=== PATIENT | female | born 1995 | race Caucasian/White ===

== ENCOUNTER → 2018-12-02 08:25 | Day surgery (SDC) | payer OTHER ==
[~2018-12-02 08:25] MED LIST: Buffered Lidocaine 1% SYRIN* 1 ML/SYRINGE INTRADERM ONE; Bupivacaine 0.25% W/EPI* 10 ML SDV ONE; Bupivacaine 0.5% W/EPI SDV* 30 ML VIAL ONE; Dexamethasone IV* 4 MG/ML 1 ML (4 MG) IV SLOW PU ONE; Dexamethasone IV* 4 MG/ML 1 ML (4 MG) ONE; DiMENhydriNATE IV* 50 MG/ML VIAL IV PUSH PRN; Famotidine IV* 10 MG/ML 2 ML (20 mg) IV ONE; Famotidine IV* 10 MG/ML 2 ML (20 mg) ONE; Ketorolac INJ* 30 MG/ML 1 ML VIAL ONE; Lactated Ringers 1000 ML Bag* 1,000 ML IV SCH; Lidocaine 2% PF * 5 ML VIAL ONE; Midazolam* 1 MG/ML 2 ML VIAL (2 MG) ONE; Naloxone* 0.4 MG/ML 1 ML VIAL IV PRN; Ondansetron INJ* 2 MG/ML VIAL ONE; Propofol* 10 MG/ML 20 ML BTL ONE; Sugammadex * 200 MG/2 ML VIAL IV PUSH ONE; fentaNYL* 50 MCG/ML 2 ML VIAL (100 MCG VIAL) IV PRN; fentaNYL* 50 MCG/ML 2 ML VIAL (100 MCG VIAL) ONE
[2018-12-02 11:17] VITALS: BP 124/82
--- NOTE | 2018-12-02 21:00 | OP ---
DATE OF OPERATION: 12/02/18 - [facility] DATE OF : 89 SURGEON: Jeremías Avery MD ANESTHESIA: General endotracheal tube. PRE-OP DIAGNOSIS: Desires permanent sterilization. POST-OP DIAGNOSIS: Desires permanent sterilization. OPERATIVE PROCEDURE: Laparoscopic bilateral tubal ligation. COMPLICATIONS: None. FINDINGS: On laparoscopy, the anterior bladder flap appeared normal. The cul- de- sac appeared normal. Both tubes and ovaries appeared normal. Liver surface was smooth and appendix was retrocecal. DESCRIPTION OF PROCEDURE: The patient was identified, procedure identified as a laparoscopic tubal ligation and removal of IUD. The patient was taken to the operating room, prepped and draped in the usual fashion in the dorsal lithotomy position under general anesthesia. A speculum was placed in the vagina and a single-tooth tenaculum was placed at the anterior lip of the cervix and the IUD string was identified and IUD was removed without difficulty. A sponge stick was placed in the vagina and small infraumbilical incision was made and a Verses needle was inserted through this. The abdomen was insufflated to 50 mmHg. The Veress needle was removed and the trocar was inserted under direct visualization using the Visiport. The above findings were noted. A second incision was made 2 cm above the pubic symphysis in the midline and a second trocar was inserted under direct visualization. The right fallopian tube was grasped in the mid portion, followed out to its fimbriated ends and fulgurated x3. The same procedure was carried out on the left after following it out to its fimbriated ends. Good hemostasis was verified. All instruments removed from the abdomen. The abdomen was deflated of CO2. The incisions were closed using skin glue and the sponge and sponge stick removed from vagina. All sponge and instrument counts were correct. The patient returned to recovery room in stable condition. [id number]/[facility] #: [id number] [facility] HOSPITALJakob
== END | disposition home or self-care (01) ==
LOC: OR 08:25
PROVIDERS: ATTEND Obstetrics & Gynecology
DX: Z30.2 Encounter for sterilization (principal); F32.9 Major depressive disorder, single episode, unspecified; Z79.899 Other long term (current) drug therapy; J45.909 Unspecified asthma, uncomplicated
CPT/HCPCS: 81025; J1100; J1885; J2250; J2405; J2704; J3010

== ENCOUNTER → 2018-12-03 12:16 | Emergency (ER) | payer OTHER ==
[~2018-12-03 12:16] MED LIST changes: +Albuterol/Ipratropium NEB.SOL* Albuterol 2.5 MG/Ipratropium 0.5 MG 3 ML INH ONE; -Buffered Lidocaine 1% SYRIN* 1 ML/SYRINGE INTRADERM ONE; -Bupivacaine 0.25% W/EPI* 10 ML SDV ONE; -Bupivacaine 0.5% W/EPI SDV* 30 ML VIAL ONE; +Dexamethasone IV* 4 MG/ML 1 ML (4 MG) IM ONE; -DiMENhydriNATE IV* 50 MG/ML VIAL IV PUSH PRN; -Famotidine IV* 10 MG/ML 2 ML (20 mg) IV ONE; -Famotidine IV* 10 MG/ML 2 ML (20 mg) ONE; -Ketorolac INJ* 30 MG/ML 1 ML VIAL ONE; -Lactated Ringers 1000 ML Bag* 1,000 ML IV SCH; -Lidocaine 2% PF * 5 ML VIAL ONE; -Midazolam* 1 MG/ML 2 ML VIAL (2 MG) ONE; -Naloxone* 0.4 MG/ML 1 ML VIAL IV PRN; -Ondansetron INJ* 2 MG/ML VIAL ONE; -Propofol* 10 MG/ML 20 ML BTL ONE; -Sugammadex * 200 MG/2 ML VIAL IV PUSH ONE; -fentaNYL* 50 MCG/ML 2 ML VIAL (100 MCG VIAL) IV PRN; -fentaNYL* 50 MCG/ML 2 ML VIAL (100 MCG VIAL) ONE
--- NOTE | 2018-12-03 14:57 | PN ---
Progress Note - Progress Note Date of Service: 12/03/18 Note: ANESTHESIOLOGY This morning at 11:06 I was paged to Same Day Surgery by Nurse Pavithra Jeong who informed me that the patient had called to report a painful sore throat and that her uvula was swollen and white when she looked in a mirror. I then called the patient, who reported the same to me. I advised her to either see her primary care provider or go to the ER. She did not think that her primary would be able to see her today, and so would go to the ER. This phone call with the patient lasted from approximately 11:19 to 11:24. Since I was working at [facility] today and would not be able to see the patient personally until at least 4:00 or 5:00 pm, I advised Anesthesia coverage at the hospital that the patent would be coming to the ER and to be available if needed. I have also informally consulted with Dr. Herbert Smith, an ENT surgeon. He told me that he has seen this phenomenon many times, although it is more common with Laryngeal Mask Airways (as opposed to the Endotracheal Tube that was used yesterday for this patient). From my description of the case, he told me that this probably represents minor trauma to the uvula, and does not need emergency treatment. He advised that it would probably resolve without specific treatment , although if the patient has severe sore throat or difficulty swallowing ( which this patient does have), a short course of corticosteroids (IV Decadron, followed by 3-4 days of Prednisone) could be used. I called the Emergency Room and spoke with Dr. Metcalf, who is caring for the patient, and told Dr. Metcalf of my conversation with Dr. Smith and his recommendations. I also told her that Dr. Smith said that he would be available to see the patient in his office if the patient wished follow-up with ENT.
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
[2018-12-03 15:27] VITALS: BP 126/55
--- NOTE | 2018-12-04 12:17 | PN ---
Progress Note - Progress Note Date of Service: 12/04/18 Note: ANESTHESIOLOGY I spoke with Pavithra just now by telephone. She reports that her symptoms and home mirror exam are not much changed from yesterday. She is taking the Prednisone and Amoxicillin as prescribed by Dr. Metcalf. She told me that she plans to continue this treatment, and possibly make an appointment with Dr. Smith if there is no improvement in a few days.
== END | disposition home or self-care (01) ==
LOC: ED 12:16
DX: K12.2 Cellulitis and abscess of mouth (principal); R13.10 Dysphagia, unspecified; Z98.51 Tubal ligation status
CPT/HCPCS: 96372; 96374; 99282; A9270-GY; J1100